=== PATIENT | male | born 1995 | race Two or more races ===

== ENCOUNTER 2016-10-13 18:46 | Emergency (ER) | payer OTHER ==
[2016-10-13 19:35] VITALS: BP 132/68
--- NOTE | 2016-10-13 19:54 | PHYS DOC ---
Past Medical History Past Medical History: Asthma Past Surgical History: No Surgical History Alcohol Use: None Drug Use: None Adult General Chief Complaint Chief Complaint: SKIN RASH/ABSCESS HPI HPI Patient is a 21 year old male presents emergency department stating that he has an abscess in his right upper leg. He states that he has had that for the last 2-3 days in the redness is just becoming larger and larger. He denies any drainage or discharge from the site. He does state his last shot was within the last 2 years. He denies any numbness or tingling going down into his lower extremity. Review of Systems Review of Systems Constitutional: Denies fever or chills [] Eyes: Denies change in visual acuity, redness, or eye pain [] HENT: Denies nasal congestion or sore throat [] Respiratory: Denies cough or shortness of breath [] Cardiovascular: No additional information not addressed in HPI [] GI: Denies abdominal pain, nausea, vomiting, bloody stools or diarrhea [] : Denies dysuria or hematuria [] Musculoskeletal: Denies back pain or joint pain [] Integument: Denies rash or skin lesions. Abscess right upper thigh Neurologic: Denies headache, focal weakness or sensory changes [] Current Medications Current Medications Current Medications Medications (Trade) Dose Ordered Sig/Mine Start Time Stop Time Status Last Admin Dose Admin Lidocaine/Sodium Bicarbonate (Buffered Lidocaine 1%) 20 ml 1X ONCE 10/13/16 20:00 10/13/16 20:01 DC 10/13/16 20:02 20 ML Allergies Allergies Allergies Coded Allergies Type Severity Reaction Last Updated Verified No Known Drug Allergies 06/24/14 No Physical Exam Physical Exam Constitutional: Well developed, well nourished, no acute distress, non-toxic appearance. [] HENT: Normocephalic, atraumatic, bilateral external ears normal, oropharynx moist, no oral exudates, nose normal. [] Eyes: PERRLA, EOMI, conjunctiva normal, no discharge. [] Neck: Normal range of motion, no tenderness, supple, no stridor. [] Cardiovascular:Heart rate regular rhythm, no murmur [] Lungs & Thorax: Bilateral breath sounds clear to auscultation [] Skin: Warm, dry, no erythema, no rash. Right upper thigh with redness, tenderness with no drainage or discharge. The tender area that appears to be soft has approximately a nickel size. Redness does surround the area. Back: No tenderness Extremities: No tenderness, no cyanosis, no clubbing, ROM intact, no edema. [] Neurologic: Alert and oriented X 3, normal motor function, normal sensory function, no focal deficits noted. [] Psychologic: Affect normal, judgement normal, mood normal. [] Current Patient Data Vital Signs Vital Signs Date Time Temp Pulse Resp B/P Pulse Ox O2 Delivery O2 Flow Rate FiO2 10/13/16 19:35 98.3 90 12 96 Room Air 98.3 EKG EKG [] Radiology/Procedures Radiology/Procedures [] Course & Med Decision Making Course & Med Decision Making Pertinent Labs and Imaging studies reviewed. (See chart for details) Recommended patient to place warm moist packs on the right inner thigh for the next 5 days 4 times a day 20 minutes at a time. Patient will be placed on doxycycline. Also recommended patient to follow up with her primary care physician in the next 3-5 days. Since symptoms to return back to emergency department as been provided. Patient agrees with discharge instructions treatment regimens and follow-up recommendations. Patient was instructed hydrocodone will cause drowsiness do not take any be alert and oriented. [] Dragon Disclaimer Dragon Disclaimer This electronic medical record was generated, in whole or in part, using a voice recognition dictation system. Departure Departure Impression: Primary Impression: Abscess Disposition: 01 HOME, SELF-CARE Condition: STABLE Referrals: NO PCP (PCP) Patient Instructions: Abscess, [id number] Additional Instructions: Activity as tolerated. Warm moist packs to the right inner thigh 4 times a day 20 minutes at a time. Keep the area clean and dry and apply dressings to the area to prevent drainage Medication as prescribed. Hydrocodone will cause drowsiness do not take any be alert and oriented. Follow-up to primary care physician next 3-5 days. Return back to emergency prior signs symptoms of become worse. Scripts Hydrocodone/Apap 5-325 (Marshall 5-325 Tablet)1 Each Tablet1 Tab PO PRN Q6HRS PRN PAIN #10 TAB Prov:MARY HARMON [employer] CL[employer] 10/13/16 Doxycycline Hyclate 100 Mg Capsule1 Cap PO BID #20 CAP Prov:MARY AHRMON [employer] CLERK 10/13/16 Incision and Drainage Incision and Drainage : Site: right thigh Blade Size: #10 I & D Procedure: betadine prep sterile drapes applied Progress Site was cleaned with Betadine. 4 mL of 1% lidocaine was injected into the area. #10 blade was used to incise the area with moderate amount of thick yellow secretions with a foul odor noted. MARY HARMON NP Oct 13, 2016 19:54
[2016-10-13] MEDS ORDERED: LIDOCAINE 1% / SOD BICARB 8.4% 20 ML VIAL. IJ ONE (20:00)
[2016-10-13] MEDS ORDERED: DOXY100C2 PO (20:37)
[2016-10-13] MEDS ORDERED: HYDR-971 PO (20:37)
== END 2016-10-13 21:00 | disposition home or self-care (01) ==
LOC: ER 18:46
DX: L02.415 Cutaneous abscess of right lower limb (principal); J45.909 Unspecified asthma, uncomplicated
CPT/HCPCS: 10060; 99283-25

== ENCOUNTER 2017-04-03 08:17 | Emergency (ER) | payer OTHER ==
[~2017-04-03] VITALS: Ht 180.3 cm; Wt 102.1 kg
[~2017-04-03 08:17] MED LIST: DOXY100C2 PO; HYDR-971 PO
[2017-04-03] MEDS ORDERED: ALBUTEROL SULFATE 2.5 MG/3 ML NEBU. NEB ONE (08:30)
[2017-04-03] MEDS ORDERED: IPRATRPIUM/ALBUTEROL 0.5/2.5MG 3 ML NEBU. NEB ONE (08:30)
[2017-04-03] MEDS ORDERED: DEXAMETHASONE 4 MG TABLET PO STA (08:30)
[2017-04-03] MEDS ORDERED: PROAIR HFA8.5 GM INH (09:12)
[2017-04-03] MEDS ORDERED: ALBU2.5V5 NEB (09:12)
--- NOTE | 2017-04-03 09:12 | PHYS DOC ---
Past Medical History Past Medical History: Asthma Past Surgical History: No Surgical History Alcohol Use: None Drug Use: Marijuana Adult General Chief Complaint Chief Complaint: ASTHMA HPI HPI Patient is a 21 year old male presenting to the emergency department for evaluation of cough shortness of breath and wheezing. Patient has a history of asthma and says that he has been wheezing and he feels sinus congestion and runny nose and postnasal drip. Patient says that sometimes he requires steroids but has never been intubated or in the ICU. Shunt is in no obvious distress with normal vital signs including an auction saturation of 93-96%. Review of Systems Review of Systems Constitutional: Denies fever or chills [] HENT: + nasal congestion Respiratory: + nonproductive cough and shortness of breath [] Cardiovascular: No additional information not addressed in HPI [] GI: Denies abdominal pain, nausea, vomiting, bloody stools or diarrhea [] Current Medications Current Medications Current Medications Medications (Trade) Dose Ordered Sig/Mine Start Time Stop Time Status Last Admin Dose Admin Albuterol Sulfate (Ventolin Neb Soln) 5 mg 1X ONCE 04/03/17 08:30 04/03/17 08:33 DC 04/03/17 08:46 5 MG Albuterol/ Ipratropium (Duoneb) 3 ml 1X ONCE 04/03/17 08:30 04/03/17 08:33 DC 04/03/17 08:46 3 ML Dexamethasone (Decadron) 10 mg 1X STAT 04/03/17 08:30 04/03/17 08:33 DC Allergies Allergies Allergies Coded Allergies Type Severity Reaction Last Updated Verified No Known Drug Allergies 04/03/17 No Physical Exam Physical Exam Constitutional: Well developed, well nourished, no acute distress, non-toxic appearance. [] Cardiovascular:Heart rate regular rhythm, no murmur [] Lungs & Thorax: Bilateral breath sounds diminished bilaterally with inspiratory and expiratory wheezing Current Patient Data Vital Signs Vital Signs Date Time Temp Pulse Resp B/P (MAP) Pulse Ox O2 Delivery O2 Flow Rate FiO2 04/03/17 08:52 Room Air 04/03/17 08:25 98.8 74 20 110/56 (74) 91 98.8 EKG EKG [] Radiology/Procedures Radiology/Procedures [] Course & Med Decision Making Course & Med Decision Making Patient given 3 breathing treatments and Decadron and his wheezing improved greatly and his auction saturation remained in the high 90s. Given patient appears well, vital signs benign physical exam and workup I will discharge him with recommendations to follow with a primary care provider in the next 2-3 days and come back to the ER sooner with worsening pain shortness of breath or other general concerns. Aware and agreeable with plan and verbalized understanding of the above instructions. Dragon Disclaimer Dragon Disclaimer This electronic medical record was generated, in whole or in part, using a voice recognition dictation system. Departure Departure Impression: Primary Impression: Asthma exacerbation Disposition: HOME, SELF-CARE Condition: GOOD Referrals: NO PCP (PCP) CRISTINO POON MD Patient Instructions: Asthma, Acute Bronchospasm Scripts Albuterol Sulfate (ALBUTEROL SULFATE NEB SOLN) 2.5 Mg/3 Ml Vial.neb 1 VIAL NEB PRN Q4HRS, #50 VIAL Prov: ANNIE HENRY DO 04/03/17 Albuterol Sulfate (PROAIR HFA INHALER) 8.5 Gm Hfa.aer.ad 1 PUFF INH Q4HRS Y for SHORTNESS OF BREATH, #1 INHALER 0 Refills Prov: ANNIE HENRY DO 04/03/17 ANNIE HENRY DO Apr 03, 2017 09:12
[2017-04-03 09:20] VITALS: BP 110/67
== END 2017-04-03 09:23 | disposition home or self-care (01) ==
LOC: ER 08:17
DX: J45.901 Unspecified asthma with (acute) exacerbation (principal); F12.10 Cannabis abuse, uncomplicated
CPT/HCPCS: 94250; 94640; 99284; J7613; J7620; J8540

== ENCOUNTER 2017-08-05 21:02 | Emergency (ER) | payer OTHER ==
[~2017-08-05] VITALS: Ht 180.3 cm; Wt 102.1 kg
[~2017-08-05 21:02] MED LIST changes: +ALBU2.5V5 NEB; +PROAIR HFA8.5 GM INH
[2017-08-05 21:08] VITALS: BP 134/63
--- NOTE | 2017-08-05 21:39 | PHYS DOC ---
Past Medical History Past Medical History: Asthma Past Surgical History: No Surgical History Alcohol Use: None Drug Use: Marijuana Social History Narrative: daily marijuana Adult General Chief Complaint Chief Complaint: SEXUALLY TRANSMITTED DISEASE HPI HPI Patient is a 22 year old male who presents to the ED with STD concern specifically herpes. Patient states he had unprotected sex with another woman who told him she has herpes. Patient has no symptoms. He is requesting to have his penile swabbed for herpes. Review of Systems Review of Systems Constitutional: Denies fever or chills [] : Concern for herpes. Denies dysuria or hematuria [] Musculoskeletal: Denies back pain or joint pain [] Integument: Denies rash or skin lesions [] Neurologic: Denies headache, focal weakness or sensory changes [] All other systems were reviewed and found to be within normal limits, except as documented in this note. Allergies Allergies Allergies Coded Allergies Type Severity Reaction Last Updated Verified No Known Drug Allergies 04/03/17 No Physical Exam Physical Exam Constitutional: Well developed, well nourished, no acute distress, non-toxic appearance. [] Abdomen: Bowel sounds normal, soft, no tenderness, no masses, no pulsatile masses. [] Male exam-patient refused Skin: Warm, dry, no erythema, no rash. [] Back: No tenderness, no CVA tenderness. [] Extremities: No tenderness, no cyanosis, no clubbing, ROM intact, no edema. [] Neurologic: Alert and oriented X 3, normal motor function, normal sensory function, no focal deficits noted. [] Psychologic: Affect normal, judgement normal, mood normal. [] Current Patient Data Vital Signs Vital Signs Date Time Temp Pulse Resp B/P (MAP) Pulse Ox O2 Delivery O2 Flow Rate FiO2 08/05/17 21:08 97.9 88 20 98 Room Air 97.9 EKG EKG [] Radiology/Procedures Radiology/Procedures [] Course & Med Decision Making Course & Med Decision Making Pertinent Labs and Imaging studies reviewed. (See chart for details) Patient is in the ED requesting herpes swab. He states he had unprotected sex with another woman who called patient and informed patient she has herpes. Patient states he does not have any lesions. Informed patient for herpes swab we need lesions on the penis otherwise he needs to have his blood drawn. Patient stood up and left stating he would rather follow-up with the health department. Dragon Disclaimer Dragon Disclaimer This electronic medical record was generated, in whole or in part, using a voice recognition dictation system. Departure Departure Impression: Primary Impression: Concern about STD in male without diagnosis Disposition: 01 HOME, SELF-CARE Condition: STABLE Referrals: NO PCP (PCP) ALEXX DIANA APRN Aug 05, 2017 21:39
[2017-08-06] MEDS ORDERED: NYST1POW PO (16:26)
== END 2017-08-05 21:50 | disposition home or self-care (01) ==
LOC: ER 21:02
DX: Z20.2 Contact with and (suspected) exposure to infections with a predominantly sexual mode of transmission (principal); J45.909 Unspecified asthma, uncomplicated; F12.10 Cannabis abuse, uncomplicated
CPT/HCPCS: 99281

== ENCOUNTER 2017-08-06 16:07 | Emergency (ER) | payer OTHER ==
[~2017-08-06] VITALS: Ht 180.3 cm; Wt 102.1 kg
[2017-08-06 16:17] VITALS: BP 122/58
--- NOTE | 2017-08-06 16:20 | PHYS DOC ---
Past Medical History Past Medical History: Asthma Past Surgical History: No Surgical History Alcohol Use: None Drug Use: Marijuana Adult General Chief Complaint Chief Complaint: SEXUALLY TRANSMITTED DISEASE HPI HPI Patient is a 22 year old medical presents today to be tested for herpes. Patient was in the ED yesterday and refused to be examined stating he is going to the health department neither would he let us examine him, he has had unprotected sex. He states he was not able to go to the health department today because when he called he was outside the allocated times to be seen. Review of Systems Review of Systems Constitutional: Denies fever or chills [] Male :rash in the groin : Denies dysuria or hematuria [] Musculoskeletal: Denies back pain or joint pain [] Integument: Denies rash or skin lesions [] Neurologic: Denies headache, focal weakness or sensory changes [] All other systems were reviewed and found to be within normal limits, except as documented in this note. Allergies Allergies Allergies Coded Allergies Type Severity Reaction Last Updated Verified No Known Drug Allergies 04/03/17 No Physical Exam Physical Exam Constitutional: Well developed, well nourished, no acute distress, non-toxic appearance. [] Male exam-obese patient with tenia cruris lesions on bilateral groin. NO penile lesions no clustered blisters/lesions consistent with herpes. Skin: Warm, dry, no erythema, no rash. [] Back: No tenderness, no CVA tenderness. [] Extremities: No tenderness, no cyanosis, no clubbing, ROM intact, no edema. [] Neurologic: Alert and oriented X 3, normal motor function, normal sensory function, no focal deficits noted. [] Psychologic: Affect normal, judgement normal, mood normal. [] Current Patient Data Vital Signs Vital Signs Date Time Temp Pulse Resp B/P (MAP) Pulse Ox O2 Delivery O2 Flow Rate FiO2 08/06/17 16:17 98.4 63 20 94 Room Air 98.4 EKG EKG [] Radiology/Procedures Radiology/Procedures [] Course & Med Decision Making Course & Med Decision Making Pertinent Labs and Imaging studies reviewed. (See chart for details) Patient is in the ED today requesting to be swabbed for lesions he has that he thinks are herpes. On examination the lesions appear to be tinea cruris. He was put on nystatin powder. Informed him we swabbed the lesions but they do not look like herpes. He is refusing any other STD treatment or testing. Requested him to follow-up with the health department tomorrow and have a blood test for herpes. Emphasized on the importance of using protection. Ozzie Disclaimer Dragon Disclaimer This electronic medical record was generated, in whole or in part, using a voice recognition dictation system. Departure Departure Impression: Primary Impression: Tinea cruris Disposition: HOME, SELF-CARE Condition: STABLE Referrals: NO PCP (PCP) follow up with the health department for Herpes blood test tomorrow Patient Instructions: Body Ringworm Additional Instructions: You were seen for concern for herpes. You do not have herpes lesions today. The lesions you have are a fungal infection in groin very common in men. Use the powder prescribed for the lesions. Please keep your groin are clean and dry. Please follow up with the health department for herpes blood test or further STD testing. Use protection at all times. Scripts Nystatin (NYSTATIN) 1 Each Powder.ea. 1 APPLIC PO BID, #1 EACH 1 Refill Prov: ALEXX DIANA APRN 08/06/17 ALEXX DIANA APRN Aug 06, 2017 16:20
[2017-08-06] MEDS ORDERED: NYST1POW PO (16:26)
[2017-08-08 21:09] LABS: HERPES SIMPLEX TYPE 1 Negative (Negative); HERPES SIMPLEX TYPE 2 Negative (Negative)
== END 2017-08-06 16:38 | disposition home or self-care (01) ==
LOC: ER 16:07
DX: B35.6 Tinea cruris (principal); J45.909 Unspecified asthma, uncomplicated; F12.10 Cannabis abuse, uncomplicated
CPT/HCPCS: 87529; 99283

== ENCOUNTER 2017-08-14 18:15 | Emergency (ER) | payer OTHER ==
[~2017-08-14] VITALS: Ht 180.3 cm; Wt 108.9 kg
[~2017-08-14 18:15] MED LIST changes: +NYST1POW PO
[2017-08-14 18:31] VITALS: BP 135/77
[2017-08-14 18:53] LABS: BILIRUBIN,URINE NEGATIVE (NEG); GLUCOSE,URINE NEGATIVE (NEG); NITRITE,URINE NEGATIVE (NEG); PROTEIN,URINE NEGATIVE (NEG-TRACE)
[2017-08-14] MEDS ORDERED: DOXY100C2 PO (18:58)
--- NOTE | 2017-08-14 18:58 | PHYS DOC ---
Past Medical History Past Medical History: Asthma Past Surgical History: No Surgical History Additional Information: 1 PACK/DAY Alcohol Use: None Drug Use: Marijuana Social History Narrative: MARIJUANA DAILY Adult General Chief Complaint Chief Complaint: PAIN ON URINATION HPI HPI Patient is a 22 year old male presents the ED complaining of dysuria 2 days. Patient states he had sex one week ago and his sexual partner told him that he was she was having vaginal discharge. States he was checked for herpes by blood test but was not checked for gonorrhea or chlamydia. Describes the pain as burning. Rates the pain as 6/10. Denies hematuria, testicular swelling, penile discharge, diarrhea, abdominal pain, chest pain or shortness of breath. Review of Systems Review of Systems Constitutional: Denies fever or chills [] Eyes: Denies change in visual acuity, redness, or eye pain [] HENT: Denies nasal congestion or sore throat [] Respiratory: Denies cough or shortness of breath [] Cardiovascular: No additional information not addressed in HPI [] GI: Denies abdominal pain, nausea, vomiting, bloody stools or diarrhea [] : Complains of dysuria. Denies hematuria [] Musculoskeletal: Denies back pain or joint pain [] Integument: Denies rash or skin lesions [] Neurologic: Denies headache, focal weakness or sensory changes [] Endocrine: Denies polyuria or polydipsia [] All other systems were reviewed and found to be within normal limits, except as documented in this note. Current Medications Current Medications Current Medications Medications (Trade) Dose Ordered Sig/Mine Start Time Stop Time Status Last Admin Dose Admin Azithromycin (Zithromax) 1,000 mg 1X ONCE 08/14/17 19:00 08/14/17 19:01 DC 08/14/17 19:15 1,000 MG Ceftriaxone Sodium (Rocephin Im) 250 mg 1X ONCE 08/14/17 19:00 08/14/17 19:01 DC 08/14/17 19:16 250 MG Allergies Allergies Allergies Coded Allergies Type Severity Reaction Last Updated Verified No Known Drug Allergies 04/03/17 No Physical Exam Physical Exam Constitutional: Well developed, well nourished, no acute distress, non-toxic appearance. [] HENT: Normocephalic, atraumatic, oropharynx moist Abdomen: Bowel sounds normal, soft, no tenderness, no masses, no pulsatile masses. [] Back: No tenderness, no CVA tenderness. [] Neurologic: Alert and oriented X 3, normal motor function, normal sensory function, no focal deficits noted. [] Psychologic: Affect normal, judgement normal, mood normal. [] Current Patient Data Vital Signs Vital Signs Date Time Temp Pulse Resp B/P (MAP) Pulse Ox O2 Delivery O2 Flow Rate FiO2 08/14/17 18:31 98.3 80 18 96 Room Air 98.3 Lab Values Laboratory Tests Test 08/14/17 18:37 Urine Collection Type Unknown Urine Color Yellow Urine Clarity Clear Urine pH 6.0 Urine Specific [place] >=1.030 Urine Protein Negative mg/dL (NEG-TRACE) Urine Glucose (UA) Negative mg/dL (NEG) Urine Ketones (Stick) Trace mg/dL (NEG) Urine Blood Negative (NEG) Urine Nitrite Negative (NEG) Urine Bilirubin Negative (NEG) Urine Urobilinogen Dipstick 1.0 mg/dL (0.2 mg/dL) Urine Leukocyte Esterase Negative (NEG) Urine RBC 0 /HPF (0-2) Urine WBC Occ /HPF (0-4) Urine Squamous Epithelial Cells None /LPF Urine Bacteria Few /HPF (0-FEW) Urine Mucus Mod /LPF EKG EKG [] Radiology/Procedures Radiology/Procedures [] Course & Med Decision Making Course & Med Decision Making Pertinent Labs and Imaging studies reviewed. (See chart for details) []Patient treated in the ED with Rocephin and azithromycin. Will follow GC cultures. Discussed safe sex practice. Discussed follow-up STD testing. Discussed reasons to return to the ED. Patient understands and agrees with plan. Dragon Disclaimer Dragon Disclaimer This electronic medical record was generated, in whole or in part, using a voice recognition dictation system. Departure Departure Impression: Primary Impression: Concern about STD in male without diagnosis Disposition: 01 HOME, SELF-CARE Condition: STABLE Referrals: NO PCP (PCP) SARAH GREGORY MD Patient Instructions: Sexually Transmitted Disease Scripts Doxycycline Hyclate (DOXYCYCLINE HYCLATE) 100 Mg Capsule 1 CAP PO BID, #14 CAP Prov: RANJAN HARRIS 08/14/17 RANJAN HARRIS Aug 14, 2017 18:58
[2017-08-14] MEDS ORDERED: AZITHROMYCIN 250 MG TABLET. PO ONE (19:00)
[2017-08-14] MEDS ORDERED: cefTRIAXone IM 250 MG VIAL IM ONE (19:00)
[2017-08-14 19:01] LABS: BACTERIA,URINE FEW /HPF (0-FEW); RBC,URINE 0 /HPF (0-2); WBC,URINE OCC /HPF (0-4)
== END 2017-08-14 19:42 | disposition home or self-care (01) ==
LOC: ER 18:15
DX: Z11.3 Encounter for screening for infections with a predominantly sexual mode of transmission (principal); R30.0 Dysuria; J45.909 Unspecified asthma, uncomplicated; F17.200 Nicotine dependence, unspecified, uncomplicated; F12.10 Cannabis abuse, uncomplicated
CPT/HCPCS: 81001; 87491; 87591; 96372; 99284; J0696; Q0144

== ENCOUNTER 2018-04-06 13:05 | Emergency (ER) | payer OTHER | END 2018-04-06 13:55 | disposition home or self-care (01) | LOC: ER 13:05 | DX: N50.812 Left testicular pain (principal); J45.909 Unspecified asthma, uncomplicated; N50.89 Other specified disorders of the male genital organs | CPT/HCPCS: 99283 ==

== ENCOUNTER 2018-04-21 22:42 | Emergency (ER) | payer OTHER ==
[~2018-04-21] VITALS: Ht 180.3 cm; Wt 106.6 kg
[~2018-04-21 22:42] MED LIST changes: +MUPI15CR TP; +SULF1TAB24 PO
[2018-04-21 23:20] VITALS: BP 165/75
--- NOTE | 2018-04-21 23:36 | PHYS DOC ---
Past Medical History Past Medical History: Asthma Past Surgical History: No Surgical History Alcohol Use: None Drug Use: Marijuana Adult General Chief Complaint Chief Complaint: ANKLE PROBLEM HPI HPI Patient is a 22 year old male who presents with right ankle pain. Patient reports he was playing basketball and landed wrong, heard a pop. Onset 1700. Review of Systems Review of Systems Constitutional: Denies fever or chills [] Musculoskeletal: Reports right ankle pain. Denies foot or knee pain Integument: Denies rash or skin lesions [] Neurologic: Denies focal weakness or sensory changes [] All other systems were reviewed and found to be within normal limits, except as documented in this note. Current Medications Current Medications Current Medications Medications (Trade) Dose Ordered Sig/Mine Start Time Stop Time Status Last Admin Dose Admin Tramadol HCl (Ultram) 100 mg 1X ONCE 04/21/18 23:45 04/21/18 23:46 UNV Allergies Allergies Allergies Coded Allergies Type Severity Reaction Last Updated Verified No Known Drug Allergies 04/03/17 No Physical Exam Physical Exam Constitutional: Well developed, well nourished, no acute distress, non-toxic appearance. [] HENT: Normocephalic, atraumatic Eyes: PERRLA, EOMI, conjunctiva normal, no discharge. [] Neck: Normal range of motion, no tenderness, supple, no stridor. [] Skin: Warm, dry, no erythema, no rash. [] Extremities: Right lateral ankle tenderness on palpation, limited range of motion due to pain, pedal pulse present Neurologic: Alert and oriented X 3, normal motor function, normal sensory function, no focal deficits noted. [] Psychologic: Affect normal, judgement normal, mood normal. [] EKG EKG [] Radiology/Procedures Radiology/Procedures XR right ankle -- no acute findings[] Course & Med Decision Making Course & Med Decision Making Pertinent Labs and Imaging studies reviewed. (See chart for details) Plan: RICE, billie wrap, air cast, f/u with PCP, return precautions reviewed Ozzie Disclaimer Dragon Disclaimer This electronic medical record was generated, in whole or in part, using a voice recognition dictation system. Departure Departure Impression: Primary Impression: Ankle sprain Disposition: 01 HOME, SELF-CARE Condition: GOOD Referrals: NO PCP (PCP) Patient Instructions: Ankle Sprain, Acute, with Phase I Rehab-SportsMed Additional Instructions: Rest, Ice, Elevation, Compression Problem Qualifiers Primary Impression: Ankle sprain Encounter type: initial encounter Involved ligament of ankle: unspecified ligament Laterality: right Qualified Codes: S93.401A - Sprain of unspecified ligament of right ankle, initial encounter RADHA GROVES STATION HELPER Apr 21, 2018 23:36
--- NOTE | 2018-04-21 23:51 | RAD ---
Indication:pain and swelling to lateral rt ankle s/p injury w "popping" noise TECHNIQUE: 3 views of the right ankle COMPARISON:None FINDINGS: No acute fracture or dislocation. Ankle mortise is intact. Moderate soft tissue swelling overlying lateral malleolus. IMPRESSION: As above. Electronically signed by: Oscar Mosquera DO (04/21/2018 11:48 PM) [facility]
[2018-04-21] MEDS ORDERED: traMADol 50 MG TABLET PO ONE (23:55)
== END 2018-04-22 00:09 | disposition home or self-care (01) ==
LOC: ER 22:42
DX: S93.401A Sprain of unspecified ligament of right ankle, initial encounter (principal); J45.909 Unspecified asthma, uncomplicated; X50.9XXA Other and unspecified overexertion or strenuous movements or postures, initial encounter; Y93.67 Activity, basketball; Y92.89 Other specified places as the place of occurrence of the external cause; Y99.8 Other external cause status
CPT/HCPCS: 29125; 73610; 99284; L4350

== ENCOUNTER 2018-06-18 08:42 | Emergency (ER) | payer OTHER ==
[~2018-06-18] VITALS: Ht 180.3 cm; Wt 108.9 kg
[2018-06-18 08:47] VITALS: BP 145/63
--- NOTE | 2018-06-18 08:52 | PHYS DOC ---
Past Medical History Past Medical History: No Pertinent History Past Surgical History: No Surgical History Alcohol Use: None Drug Use: Marijuana Adult General Chief Complaint Chief Complaint: INSECT BITE HPI HPI Patient is a 23 year old male with no significant medical history who presents today with an abscess on the right lateral thigh that he has had for 3 days. Patient states he tried popping it himself yesterday and it got worse. Patient denies any fever. Review of Systems Review of Systems Constitutional: Denies fever or chills [] Musculoskeletal: Denies back pain or joint pain [] Integument:an abscess on the right lateral thigh Neurologic: Denies headache, focal weakness or sensory changes [] All other systems were reviewed and found to be within normal limits, except as documented in this note. Allergies Allergies Allergies Coded Allergies Type Severity Reaction Last Updated Verified No Known Drug Allergies 06/18/18 No Physical Exam Physical Exam Constitutional: Well developed, well nourished, no acute distress, non-toxic appearance. [] Skin: Warm, dry, right lateral thigh with none indurated erythematous area approximately 4 x 4 centimeters, the Center is scabbed over. The area is warm tender to touch. There is no fluctuance to the area. Back: No tenderness, no CVA tenderness. [] Extremities: No tenderness, no cyanosis, no clubbing, ROM intact, no edema. [] Neurologic: Alert and oriented X 3, normal motor function, normal sensory function, no focal deficits noted. [] Psychologic: Affect normal, judgement normal, mood normal. [] Current Patient Data Vital Signs Vital Signs Date Time Temp Pulse Resp B/P (MAP) Pulse Ox O2 Delivery O2 Flow Rate FiO2 06/18/18 08:47 98.6 94 20 145/63 (90) 95 Room Air 98.6 EKG EKG [] Radiology/Procedures Radiology/Procedures [] Course & Med Decision Making Course & Med Decision Making Pertinent Labs and Imaging studies reviewed. (See chart for details) Patient is an abscess to the right lateral thigh, he attempted to drain it yesterday. There is nothing to drain today. The area has cellulitis. Tetanus up- to-date. Discharged with Bactrim and Bactroban ointment. Warm compresses recommended. Follow-up with PCP in 1-2 weeks. Ozzie Disclaimer Dragon Disclaimer This electronic medical record was generated, in whole or in part, using a voice recognition dictation system. Departure Departure Impression: Primary Impression: Cellulitis and abscess of lower extremity Disposition: HOME, SELF-CARE Condition: STABLE Referrals: NO PCP (PCP) Follow-up in 1-2 weeks Patient Instructions: Abscess, Cellulitis, [id number] Additional Instructions: You were evaluated in the emergency room for an abscess with cellulitis to the right thigh. Keep the area clean and dry. Apply warm compresses to the area twice a day. Complete your antibiotics. Follow-up with your doctor in 1-2 weeks. Come back to the ED at any point symptoms worsen. Scripts Mupirocin Calcium (BACTROBAN CREAM) 15 Gm Cream..g. 1 CAROL TP TID, #30 GM Prov: ALEXX DIANA APRN 06/18/18 Sulfamethoxazole/Trimethoprim (BACTRIM 400-80 MG TABLET) 1 Each Tablet 1 TAB PO BID, #20 TAB Prov: ALEXX DIANA APRN 06/18/18 ALEXX DIANA APRN Jun 18, 2018 08:52
[2018-06-18] MEDS ORDERED: SULF1TAB23 PO (09:00)
[2018-06-18] MEDS ORDERED: MUPI15CR TP (09:00)
== END 2018-06-18 09:05 | disposition home or self-care (01) ==
LOC: ER 08:42
DX: L02.415 Cutaneous abscess of right lower limb (principal)
CPT/HCPCS: 99283

== ENCOUNTER 2019-09-09 18:15 | Emergency (ER) | payer OTHER ==
[~2019-09-09] VITALS: Ht 180.3 cm; Wt 108.9 kg
[~2019-09-09 18:15] MED LIST changes: +ALBU2.5V8 INH; +HYDR-3164 PO; -HYDR-971 PO; -PROAIR HFA8.5 GM INH; +SULF1TAB23 PO
[2019-09-09 19:03] VITALS: BP 141/92
[2019-09-09] MEDS ORDERED: DEXAMETHASONE 4 MG TABLET PO STA (19:36)
[2019-09-09] MEDS ORDERED: IPRATRPIUM/ALBUTEROL 0.5/2.5MG 3 ML NEBU. NEB STA (19:36)
[2019-09-09] MEDS ORDERED: METH4TAB2 PO (19:52)
[2019-09-09] MEDS ORDERED: ALBU2.5V5 NEB (19:52)
--- NOTE | 2019-09-09 19:52 | PHYS DOC ---
Past Medical History Past Medical History: Asthma (SARAH THOMAS APRN) Past Surgical History: No Surgical History (SARAH THOMAS APRN) Alcohol Use: None Drug Use: Marijuana (SARAH THOMAS APRN) Attending Signature I have participated in the care of this patient and I have reviewed and agree with all pertinent clinical information above including history, exam, and recommendations. (ERIKA MARTÍNEZ MD) Adult General Chief Complaint Chief Complaint: COUGH HPI HPI Patient is a 24 year old male who presents with shortness of breath, and cough this been ongoing for 2 days. The patient states that he ran out of his albuterol solution at home. Patient has a history of asthma. (SARAH THOMAS APRN) Review of Systems Review of Systems Constitutional: Denies fever or chills [] Eyes: Denies change in visual acuity, redness, or eye pain [] HENT: Denies nasal congestion or sore throat [] Respiratory: Reports cough and shortness of breath [] Cardiovascular: No additional information not addressed in HPI [] GI: Denies abdominal pain, nausea, vomiting, bloody stools or diarrhea [] : Denies dysuria or hematuria [] Musculoskeletal: Denies back pain or joint pain [] Integument: Denies rash or skin lesions [] Neurologic: Denies headache, focal weakness or sensory changes [] Endocrine: Denies polyuria or polydipsia [] Complete systems were reviewed and found to be within normal limits, except as documented in this note. (SARAH THOMAS APRN) Current Medications Current Medications Current Medications Medications (Trade) Dose Ordered Sig/Mine Start Time Stop Time Status Last Admin Dose Admin Albuterol/ Ipratropium (Duoneb) 3 ml 1X STAT 09/09/19 19:36 09/09/19 19:39 DC 09/09/19 19:42 3 ML Dexamethasone (Decadron) 10 mg 1X STAT 09/09/19 19:36 09/09/19 19:39 DC 09/09/19 19:59 10 MG (ERIKA MARTÍNEZ MD) Allergies Allergies Allergies Coded Allergies Type Severity Reaction Last Updated Verified No Known Drug Allergies 06/18/18 No (ERIKA MARTÍNEZ MD) Physical Exam Physical Exam Constitutional: Well developed, well nourished, no acute distress, non-toxic appearance. [] HENT: Normocephalic, atraumatic, bilateral external ears normal, oropharynx moist, no oral exudates, nose normal. [] Eyes: PERRLA, EOMI, conjunctiva normal, no discharge. [] Neck: Normal range of motion, no tenderness, supple, no stridor. [] Cardiovascular:Heart rate regular rhythm, no murmur [] Lungs & Thorax: Bilateral breath sounds have mild inspiratory wheezing. Skin: Warm, dry, no erythema, no rash. [] Neurologic: Alert and oriented X 3, normal motor function, normal sensory function, no focal deficits noted. [] Psychologic: Affect normal, judgement normal, mood normal. [] (SARAH THOMAS APRN) Current Patient Data Vital Signs Vital Signs Date Time Temp Pulse Resp B/P (MAP) Pulse Ox O2 Delivery O2 Flow Rate FiO2 09/09/19 19:43 96 Room Air 09/09/19 19:03 98.9 72 16 141/92 (108) 98.9 (ERIKA MARTÍNEZ MD) EKG EKG [] (SARAH THOMAS APRN) Radiology/Procedures Radiology/Procedures [] (SARAH THOMAS APRN) Course & Med Decision Making Course & Med Decision Making Pertinent Labs and Imaging studies reviewed. (See chart for details) The patient appears to be having an asthma exacerbation. Will give Duoneb, and Decadron. Will also prescribe albuterol solution for patient at home and medrol dose pack. Patient improved after treatment, will d/c home. (SARAH THOMAS APRN) Dragon Disclaimer Dragon Disclaimer This electronic medical record was generated, in whole or in part, using a voice recognition dictation system. (SARAH THOMAS APRN) Departure Departure Impression: Primary Impression: Asthma exacerbation Disposition: HOME, SELF-CARE Condition: STABLE Referrals: NO PCP (PCP) Patient Instructions: Asthma Attacks, Prevention, Asthma, Acute Bronchospasm, Asthma, Adult Additional Instructions: Thank you for visiting [facility]. We appreciate you trusting us with your care. If any additional problems come up don't hesitate to return to visit us. Please follow up with your primary care provider so they can plan additional care if needed and know about the problem that you had. If symptoms worsen come back to the Emergency Department. Any concerning symptoms that start such as chest pain, shortness of air, weakness or numbness on one side of the body, running high fevers or any other concerning symptoms return to the ER. Please fill your medications at any pharmacy and follow the prescription instructions. Scripts Methylprednisolone (MEDROL) 4 Mg Tab.ds.pk 1 PKG PO UD, #1 PKG Prov: SARAH THOMAS APRN 09/09/19 Albuterol Sulfate (ALBUTEROL SULFATE NEB SOLN) 2.5 Mg/3 Ml Vial.neb 1 VIAL NEB PRN Q4HRS, #50 VIAL Prov: SARAH THOMAS APRN 09/09/19 SARAH THOMAS APRN Sep 09, 2019 19:52 ERIKA MARTÍNEZ MD Sep 10, 2019 00:25
== END 2019-09-09 20:03 | disposition home or self-care (01) ==
LOC: ER 18:15
DX: J45.901 Unspecified asthma with (acute) exacerbation (principal)
CPT/HCPCS: 94640; 99283; J7620; J8540

== ENCOUNTER 2020-11-07 10:48 | Emergency (ER) | payer OTHER ==
[~2020-11-07] VITALS: Ht 180.3 cm; Wt 110.0 kg
[~2020-11-07 10:48] MED LIST changes: +METH4TAB2 PO
[2020-11-07] MEDS ORDERED: metroNIDAZOLE 500 MG TABLET PO ONE (13:30)
[2020-11-07] MEDS ORDERED: DOXYCYCLINE HYCLATE 100 MG TABLET PO ONE (13:30)
[2020-11-07] MEDS ORDERED: cefTRIAXone IM 500 MG VIAL. IM ONE (13:30)
[2020-11-07 13:33] VITALS: BP 116/74
[2020-11-07] MEDS ORDERED: DOXY100T PO (13:33)
--- NOTE | 2020-11-07 13:33 | PHYS DOC ---
Past Medical History Past Medical History: Asthma Past Surgical History: No Surgical History Smoking Status: Current Every Day Smoker Alcohol Use: None Drug Use: Marijuana General Adult EDM: Chief Complaint: SEXUALLY TRANSMITTED DISEASE HPI: HPI: Patient is a 25 year old male presenting to the ED today requesting STD treatment specifically for gonorrhea. He reports his significant female partner tested positive for the disease. He states he has had dysuria for a couple days. Review of Systems: Review of Systems: Constitutional: Denies fever or chills. [] GI: Denies abdominal pain, nausea, vomiting, bloody stools or diarrhea. [] : Reports concern for STDs and dysuria. [] Musculoskeletal: Denies back pain or joint pain. [] Integument: Denies rash. [] Neurologic: Denies headache, focal weakness or sensory changes. [] Psychiatric: Denies depression or anxiety. [] Heart Score: C/O Chest Pain: N/A Risk Factors: Risk Factors: DM, Current or recent (<one month) smoker, HTN, HLP, family history of CAD, obesity. Risk Scores: Score 0 - 3: 2.5% MACE over next 6 weeks - Discharge Home Score 4 - 6: 20.3% MACE over next 6 weeks - Admit for Clinical Observation Score 7 - 10: 72.7% MACE over next 6 weeks - Early Invasive Strategies Allergies: Allergies: Allergies Coded Allergies Type Severity Reaction Last Updated Verified No Known Drug Allergies 06/18/18 No Physical Exam: PE: Constitutional: Well developed, well nourished, no acute distress, non-toxic appearance. [] Abdomen: Bowel sounds normal, soft, no tenderness, no masses, no pulsatile mass es. [] Skin: Warm, dry, no erythema, no rash. [] Back: No tenderness, no CVA tenderness. [] Extremities: No tenderness, no cyanosis, no clubbing, ROM intact, no edema. [] Neurologic: Alert and oriented X 3, normal motor function, normal sensory function, no focal deficits noted. [] Psychologic: Affect normal, judgement normal, mood normal. [] Current Patient Data: Vital Signs: Vital Signs Date Time Temp Pulse Resp B/P (MAP) Pulse Ox O2 Delivery O2 Flow Rate FiO2 11/07/20 11:44 98.2 77 16 116/74 (88) 97 Room Air 98.2 EKG: EKG: [] Radiology/Procedures: Radiology/Procedures: [] Course & Med Decision Making: Course & Med Decision Making Pertinent Labs and Imaging studies reviewed. (See chart for details) This is a 25-year-old male patient presented to the ED today with STD concern. Patient states the significant female partner was diagnosed with gonorrhea and he would like to be treated. He has dysuria. Was provided treatment in the ED according to new CDC treatment protocol. Discharged on doxycycline. Ozzie Disclaimer: Ozzie Disclaimer: This electronic medical record was generated, in whole or in part, using a voice recognition dictation system. Departure Departure Impression: Primary Impression: Concern about STD in male without diagnosis Disposition: 01 DC HOME SELF CARE/HOMELESS Condition: STABLE Referrals: NO PCP (PCP) Follow-up with the health department as needed Patient Instructions: Sexually Transmitted Disease, Qnat-of-Ogfp Additional Instructions: You were treated for sexually transmitted diseases. Do not have intercourse for 1 week. Use protection after that. Follow-up with the health department as needed. Ensure you let all your partners know you were treated for STDs and and encourage them to seek treatment too Scripts Doxycycline Hyclate (DOXYCYCLINE HYCLATE) 100 Mg Tablet 1 TAB PO BID, #14 TAB Prov: ALEXX DIANA APRN 11/07/20 ALEXX DIANA APRN Nov 07, 2020 13:33
== END 2020-11-07 14:02 | disposition home or self-care (01) ==
LOC: ER 10:48
DX: R30.0 Dysuria (principal); J45.909 Unspecified asthma, uncomplicated; F12.90 Cannabis use, unspecified, uncomplicated; F17.200 Nicotine dependence, unspecified, uncomplicated
CPT/HCPCS: 96372; 99283; J0696

== ENCOUNTER 2021-12-06 17:16 | Emergency (ER) | payer OTHER ==
[~2021-12-06] VITALS: Ht 170.2 cm; Wt 100.0 kg
[~2021-12-06 17:16] MED LIST changes: -DOXY100C2 PO; +DOXY100C3 PO; +DOXY100T PO
[2021-12-06] MEDS ORDERED: POLY10DR OD (18:42)
[2021-12-06] MEDS ORDERED: HYDR-2761 PO (18:42)
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
== END 2021-12-06 18:45 | disposition home or self-care (01) ==
LOC: ER 17:16
DX: M25.531 Pain in right wrist (principal); H92.01 Otalgia, right ear; J45.909 Unspecified asthma, uncomplicated; F17.200 Nicotine dependence, unspecified, uncomplicated; G89.11 Acute pain due to trauma; Y08.89XA Assault by other specified means, initial encounter; Y93.89 Activity, other specified; Y92.89 Other specified places as the place of occurrence of the external cause; Y99.8 Other external cause status
CPT/HCPCS: 99283

== ENCOUNTER 2021-12-11 20:18 | Emergency (ER) | payer OTHER ==
[~2021-12-11] VITALS: Ht 180.3 cm; Wt 113.6 kg
[~2021-12-11 20:18] MED LIST changes: +HYDR-2761 PO; +POLY10DR OD
[2021-12-11 20:41] VITALS: BP 138/77
[2021-12-11] MEDS ORDERED: IBUPROFEN 400 MG TABLET. PO ONE (21:00)
[2021-12-11] MEDS ORDERED: ACETAMINOPHEN 500 MG TABLET PO ONE (21:00)
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
[2021-12-11] MEDS ORDERED: IBUP-1007 PO ×2 (21:41)
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
== END 2021-12-11 21:50 | disposition home or self-care (01) ==
LOC: ER 20:18
DX: S62.339D Displaced fracture of neck of unspecified metacarpal bone, subsequent encounter for fracture with routine healing (principal); J45.909 Unspecified asthma, uncomplicated; F17.200 Nicotine dependence, unspecified, uncomplicated; Y04.0XXD Assault by unarmed brawl or fight, subsequent encounter
CPT/HCPCS: 29125; 70450; 73110; 73130; 99284-25

== ENCOUNTER 2021-12-14 13:36 | Emergency (ER) | payer OTHER ==
[~2021-12-14] VITALS: Ht 180.3 cm; Wt 113.6 kg
[~2021-12-14 13:36] MED LIST changes: +IBUP-1007 PO
[2021-12-14 13:53] VITALS: BP 134/59
[2021-12-14] MEDS ORDERED: IBUPROFEN 200 MG TABLET. PO ONE (14:00)
[2021-12-14] MEDS ORDERED: TRIA15CR2 TP (14:16)
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
== END 2021-12-14 14:37 | disposition home or self-care (01) ==
LOC: ER 13:36
DX: S62.316A Displaced fracture of base of fifth metacarpal bone, right hand, initial encounter for closed fracture (principal); L30.1 Dyshidrosis [pompholyx]; J45.909 Unspecified asthma, uncomplicated; F17.200 Nicotine dependence, unspecified, uncomplicated; X58.XXXA Exposure to other specified factors, initial encounter; Y93.89 Activity, other specified; Y92.89 Other specified places as the place of occurrence of the external cause; Y99.8 Other external cause status
CPT/HCPCS: 99282